=== PATIENT | male | born 1950 | race Two or more races ===

== ENCOUNTER 2017-11-01 08:28 | Outpatient (CLI) | payer OTHER ==
[~2017-11-01] VITALS: Ht 152.4 cm; Wt 88.5 kg
[~2017-11-01 08:28] MED LIST: ASA81 MG; ZANTAC 7575 MG; ZANTAC300 MG PO
== END 2017-11-01 08:45 | disposition home or self-care (01) ==
LOC: OFIC 805 08:28
DX: H90.3 Sensorineural hearing loss, bilateral (principal); R49.8 Other voice and resonance disorders; J37.0 Chronic laryngitis; J31.0 Chronic rhinitis; H61.21 Impacted cerumen, right ear

== ENCOUNTER 2017-11-13 10:12 | Outpatient (CLI) | payer OTHER | END 2017-11-13 10:13 | disposition home or self-care (01) | LOC: RAD 10:12 | DX: H25.012 Cortical age-related cataract, left eye (principal) ==

== ENCOUNTER 2018-04-26 17:27 | Emergency (ER) | payer OTHER ==
[~2018-04-26] VITALS: Ht 175.3 cm; Wt 83.9 kg
[2018-04-26] MEDS ORDERED: OMEGA 3-6-9 CO400 MG (17:51)
[2018-04-26] MEDS ORDERED: [UNRECOGNIZED DRUG - OTHER] (17:54)
[2018-04-26] MEDS ORDERED: LISINOPRIL20 MG (17:54)
== END 2018-04-26 20:25 | disposition home or self-care (01) ==
LOC: ER 17:27
DX: G44.209 Tension-type headache, unspecified, not intractable (principal); F32.89 Other specified depressive episodes

== ENCOUNTER 2021-02-12 08:42 | Emergency (ER) | payer OTHER ==
[~2021-02-12] VITALS: Ht 172.7 cm; Wt 81.6 kg
[~2021-02-12 08:42] MED LIST changes: +LISINOPRIL20 MG; +OMEGA 3-6-9 CO400 MG; +[UNRECOGNIZED DRUG - OTHER]
[2021-02-12] MEDS ORDERED: MUPIROCIN22 GM TOP (10:28)
== END 2021-02-12 10:36 | disposition home or self-care (01) ==
LOC: ER 08:42
DX: L60.0 Ingrowing nail (principal)

== ENCOUNTER 2021-11-29 09:22 | Emergency (ER) | payer OTHER ==
[~2021-11-29] VITALS: Ht 172.7 cm; Wt 81.6 kg
[~2021-11-29 09:22] MED LIST changes: +MUPIROCIN22 GM TOP
[2021-11-29] MEDS ORDERED: TUSSI PRES-B L480 ML PO (12:40)
[2021-11-29] MEDS ORDERED: ZITHROMAX500 MG PO (12:40)
== END 2021-11-29 13:09 | disposition home or self-care (01) ==
LOC: ER 09:22
DX: B34.9 Viral infection, unspecified (principal); I10 Essential (primary) hypertension; Z20.822 Contact with and (suspected) exposure to COVID-19

== ENCOUNTER → 2022-04-15 | Emergency (ER) | payer OTHER ==
[~2022-04-15] VITALS: Ht 175.3 cm; Wt 81.6 kg
[~2022-04-15] MED LIST changes: +EZALLOR SPRINKLE5 MG PO; +OMEPRAZOLE20 MG PO; +TUSSI PRES-B L480 ML PO; +ZITHROMAX500 MG PO
== END | disposition home or self-care (01) ==
LOC: ER 08:01
DX: M54.50 Low back pain, unspecified (principal); I10 Essential (primary) hypertension; M51.36 Other intervertebral disc degeneration, lumbar region

== ENCOUNTER 2022-06-09 07:45 | Emergency (ER) | payer OTHER ==
[~2022-06-09] VITALS: Ht 152.4 cm; Wt 81.6 kg
== END 2022-06-09 10:06 | disposition home or self-care (01) ==
LOC: ER 07:45
DX: J02.8 Acute pharyngitis due to other specified organisms (principal)

== ENCOUNTER 2023-01-31 11:15 | Emergency (ER) | payer OTHER ==
[~2023-01-31] VITALS: Ht 170.2 cm; Wt 86.2 kg
== END 2023-01-31 15:05 | disposition home or self-care (01) ==
LOC: ER 11:15
DX: U07.1 COVID-19 (principal)

== ENCOUNTER 2023-08-08 08:00 | Emergency (ER) | payer OTHER ==
[~2023-08-08] VITALS: Ht 175.3 cm; Wt 83.9 kg
[2023-08-08] MEDS ORDERED: GABAPENTIN800 M1 PO (08:25)
[2023-08-08] MEDS ORDERED: ZESTRIL10 M1 PO (08:26)
[2023-08-08] MEDS ORDERED: RESTORIL30 MG PO (08:27)
== END 2023-08-08 09:07 | disposition home or self-care (01) ==
LOC: ER 08:00
DX: M94.0 Chondrocostal junction syndrome [Tietze] (principal); R07.89 Other chest pain
CPT/HCPCS: 93005; 96372; 99283; J1885

== ENCOUNTER 2023-09-29 08:08 | Emergency (ER) | payer OTHER ==
[~2023-09-29] VITALS: Ht 175.3 cm; Wt 81.6 kg
[~2023-09-29 08:08] MED LIST changes: +GABAPENTIN800 M1 PO; +RESTORIL30 MG PO; +ZESTRIL10 M1 PO
[2023-09-29 09:13] LABS: HEMATOCRIT 42.1 % (39.0-48.0); HEMOGLOBIN 14.5 g/dL (13-16.00); MEAN CELL VOLUME 88.4 fL (80.0-100.00); MEAN CORPUSCULAR HEMOGLOBIN 30.5 pg (27.00-32.0); MEAN CORPUSCULAR HGB CONC 34.5 g/dl (32.0-36.0); PLATELET COUNT 211 K/uL (150-450); RED BLOOD COUNT 4.76 M/uL (4.00-6.00); RED CELL DISTRIBUTION WIDTH 14.3 % (11.5-14.5)
[2023-09-29 09:40] LABS: CALCIUM 9.6 mg/dL (8.5-10.1); CREATININE SERUM 1.63 mg/dL (0.70-1.30); GFR 41.56; POTASSIUM 4.17 mEq/L (3.5-5.1)
[2023-09-29 09:41] LABS: PH,URINE 6.5 (5.0-8.0); URINE APPEARANCE Clear; URINE BILIRRUBIN Negative (NEGATIVE); URINE BLOOD Negative; URINE COLOR Dark Yellow; URINE GLUCOSE Negative (NEGATIVE); URINE LEUKOCYTE Negative; URINE NITRATE Negative; URINE PROTEIN 30 (NEGATIVE)
[2023-09-29 09:44] LABS: URINE BACTERIA 30.2 uL (0.0-1933); URINE EPITHELIAL CELLS 7.5 uL (0.0-38.8); URINE RBC 10.6 uL (0.0-20.8); URINE WBC 6.6 uL (0.0-23.2)
== END 2023-09-29 13:14 | disposition home or self-care (01) ==
LOC: ER 08:08
PROVIDERS: General Practice
DX: B34.9 Viral infection, unspecified (principal); R50.9 Fever, unspecified; R53.81 Other malaise; Z20.822 Contact with and (suspected) exposure to COVID-19; I10 Essential (primary) hypertension

== ENCOUNTER 2024-01-11 05:35 | Emergency (ER) | payer OTHER ==
[~2024-01-11] VITALS: Ht 175.3 cm; Wt 83.9 kg
[2024-01-11] MEDS ORDERED: ACETAMINOPHEN 500 MG GEL..CAP PO ONE ×2 (09:45→09:47)
[2024-01-11] MEDS ORDERED: BROMPHENIRAM/PHENYLEPHRINE/DM 5 ML BLIST.PACK PO ONE (09:45)
[2024-01-11] MEDS ORDERED: LORATADINE 10 MG TABLET PO ONE (09:45)
[2024-01-11] MEDS ORDERED: DEXAMETHASONE SODIUM PHOSPHATE 4 MG/ML VIAL IM ONE (09:45)
[2024-01-11] MEDS ORDERED: DEXAMETHASONE SODIUM PHOSPHATE 4 MG/ML VIAL ONE (09:48)
[2024-01-11 10:41] LABS: HEMATOCRIT 40.5 % (39.0-48.0); MEAN CELL VOLUME 90.2 fL (80.0-100.00); MEAN CORPUSCULAR HEMOGLOBIN 31.2 pg (27.00-32.0); MEAN CORPUSCULAR HGB CONC 34.6 g/dl (32.0-36.0); PLATELET COUNT 225 K/uL (150-450); RED CELL DISTRIBUTION WIDTH 14.4 % (11.5-14.5)
[2024-01-11] MEDS ORDERED: PAXLOVID 150-11 EAC1 PO (11:52)
[2024-01-11] MEDS ORDERED: ZYRTEC10 M3 PO ×2 (11:56→11:57)
[2024-01-11] MEDS ORDERED: FLONASE ALLERG9.9 ML NASAL ×2 (11:57)
== END 2024-01-11 13:07 | disposition home or self-care (01) ==
LOC: ER 05:37
PROVIDERS: General Practice
DX: U07.1 COVID-19 (principal); I10 Essential (primary) hypertension
CPT/HCPCS: 36415; 96372; 99282; J1100

== ENCOUNTER 2024-09-14 08:07 | Emergency (ER) | payer OTHER ==
[~2024-09-14] VITALS: Ht 175.3 cm; Wt 86.2 kg
[~2024-09-14 08:07] MED LIST changes: +FLONASE ALLERG9.9 ML NASAL; +PAXLOVID 150-11 EAC1 PO; +ZYRTEC10 M3 PO
[2024-09-14] MEDS ORDERED: CEFTRIAXONE SODIUM 1,000 MG VIAL IM ONE (10:15)
[2024-09-14] MEDS ORDERED: LIDOCAINE HCL 1% 10ML VIAL ONE (10:19)
[2024-09-14] MEDS ORDERED: CEFTRIAXONE SODIUM 1,000 MG VIAL ONE (10:20)
== END 2024-09-14 10:28 ==
LOC: ER 08:09
DX: J37.0 Chronic laryngitis (principal); I10 Essential (primary) hypertension; K21.9 Gastro-esophageal reflux disease without esophagitis; G47.09 Other insomnia; E78.49 Other hyperlipidemia
CPT/HCPCS: 96372; 99282; J0696

== ENCOUNTER 2024-10-29 09:10 | Outpatient (CLI) | payer OTHER | END 2024-10-29 09:16 | disposition home or self-care (01) | LOC: RAD 09:10 | PROVIDERS: ATTEND Internal Medicine | DX: R10.2 Pelvic and perineal pain (principal) ==

== ENCOUNTER 2025-01-13 07:59 | Emergency (ER) | payer OTHER ==
[~2025-01-13] VITALS: Ht 175.3 cm; Wt 90.3 kg
[2025-01-13] MEDS ORDERED: BENZONATATE 200 MG CAPSULE PO ONE (09:45)
[2025-01-13] MEDS ORDERED: LEVALBUTEROL HCL 1.25 MG/3 ML SOLUTION IH ONE (09:45)
[2025-01-13] MEDS ORDERED: METHYLPREDNISOLONE SOD SUCC 40 MG VIAL IM ONE (09:45)
[2025-01-13 10:25] LABS: BASO % 0.5 % (0.1-1.2); EOS # 0.02 (0.04-0.54); EOS % 0.2 % (0.7-7.0); HEMATOCRIT 36.3 % (40.1-51.0); LYMPH % 28.5 % (19.3-53.1); MEAN CORPUSCULAR HEMOGLOBIN 29.8 pg (25.6-32.2); MONO # 1.39 (0.24-0.82); NEUT # 4.79 (1.56-6.13); NEUT % 54.7 % (34.0-71.1); PLATELET COUNT 213 K/uL (163-369); RED BLOOD COUNT 4.03 M/uL (4.63-6.08); RED CELL DISTRIBUTION WIDTH 13.3 % (11.6-14.4)
[2025-01-13 10:27] LABS: MONO % 15.9 % (4.7-12.5)
[2025-01-13 10:43] LABS: ALBUMIN 4.1 gm/dL (3.4-5.0); BILIRUBIN TOTAL 0.73 mg/dL (0.3-1.2); CALCIUM 9.6 mg/dL (8.5-10.1); CREATININE SERUM 1.46 mg/dL (0.70-1.30); GFR 46.94; GLOBULINA 4.1 G/DL (2.4-3.5); POTASSIUM 4.53 mEq/L (3.5-5.1); TOTAL PROTEIN 8.2 gm/dL (6.4-8.2)
[2025-01-13 11:09] LABS: INFLUENZA A AG NEGATIVE (NEGATIVE); INFLUENZA B AG NEGATIVE (NEGATIVE)
[2025-01-13 11:17] LABS: PH,URINE 5.5 (5.0-8.0); URINE APPEARANCE Clear; URINE BILIRRUBIN Negative (NEGATIVE); URINE BLOOD Negative; URINE COLOR Yellow; URINE GLUCOSE Negative (NEGATIVE); URINE KETONE Negative (NEGATIVE); URINE LEUKOCYTE Negative; URINE NITRATE Negative; URINE PROTEIN Negative (NEGATIVE)
[2025-01-13 11:26] LABS: COVID-19 AG NEGATIVE (NEGATIVE)
[2025-01-13] MEDS ORDERED: LEVALBUTER0.63 MG/3 IH (11:36)
[2025-01-13] MEDS ORDERED: BENZONATATE200 M1 PO (11:36)
[2025-01-13] MEDS ORDERED: AZITHROMYCIN500 MG PO (11:36)
[2025-01-13] MEDS ORDERED: SINGULAIR10 MG PO (11:36)
[2025-01-13] MEDS ORDERED: PEPCID AC20 MG PO (11:36)
[2025-01-13] MEDS ORDERED: ZYRTEC10 MG PO (11:38)
[2025-01-13 11:41] LABS: URINE RBC 0-3 /HPF; URINE WBC 0-2 /hpf
[2025-01-13 11:42] LABS: URINE BACTERIA SOME; URINE EPITHELIAL CELLS 0-4 /HPF; URINE MUCUS MODERATE
== END 2025-01-13 11:53 | disposition home or self-care (01) ==
LOC: ER 08:34
PROVIDERS: General Practice
DX: R05.9 Cough, unspecified (principal); Z20.822 Contact with and (suspected) exposure to COVID-19
CPT/HCPCS: 36415; 71046; 94640; 96372; 99283; J3490

== ENCOUNTER 2025-05-28 17:04 | Emergency (ER) | payer OTHER ==
[~2025-05-28] VITALS: Ht 175.3 cm; Wt 88.5 kg
[~2025-05-28 17:04] MED LIST changes: +AZITHROMYCIN500 MG PO; +BENZONATATE200 M1 PO; +LEVALBUTER0.63 MG/3 IH; +PEPCID AC20 MG PO; +SINGULAIR10 MG PO; +ZYRTEC10 MG PO
[2025-05-28] MEDS ORDERED: ORPHENADRINE CITRATE 30 MG/ML AMPUL IM ONE (18:00)
[2025-05-28] MEDS ORDERED: DEXAMETHASONE SODIUM PHOSP/PF 10 MG/ML VIAL IV ONE (18:00)
[2025-05-28] MEDS ORDERED: KETOROLAC TROMETHAMINE 30 MG VIAL IM ONE (18:00)
[2025-05-28] MEDS ORDERED: KETOROLAC TROMETHAMINE 30 MG VIAL ONE (20:57)
[2025-05-28] MEDS ORDERED: DEXAMETHASONE SODIUM PHOSPHATE 4 MG/ML VIAL ONE (20:57)
[2025-05-28] MEDS ORDERED: ORPHENADRINE CITRATE 30 MG/ML AMPUL ONE (20:57)
[2025-05-28] MEDS ORDERED: TYLENOL ARTHRI650 MG PO (21:12)
[2025-05-28] MEDS ORDERED: KETO10TA2 PO (21:12)
[2025-05-28 21:45] VITALS: BP 132/70; O2SAT 98
== END 2025-05-28 21:46 | disposition home or self-care (01) ==
LOC: ER 17:04
DX: S42.392A Other fracture of shaft of left humerus, initial encounter for closed fracture (principal); I10 Essential (primary) hypertension; M25.512 Pain in left shoulder; W18.39XA Other fall on same level, initial encounter; Y93.89 Activity, other specified; Y92.89 Other specified places as the place of occurrence of the external cause
CPT/HCPCS: 73030; 73060; 73200; 96365; 96372; 99284; J1100; J1885; J2360

== ENCOUNTER 2025-07-01 08:12 | Emergency (ER) | payer OTHER ==
[~2025-07-01] VITALS: Ht 175.3 cm; Wt 89.8 kg
[~2025-07-01 08:12] MED LIST changes: +KETO10TA2 PO; +TYLENOL ARTHRI650 MG PO
[2025-07-01 08:33] VITALS: BP 116/76; O2SAT 98
[2025-07-01] MEDS ORDERED: DEXAMETHASONE SODIUM PHOSPHATE 4 MG/ML VIAL IM STA ×2 (08:36→08:47)
[2025-07-01] MEDS ORDERED: KETOROLAC TROMETHAMINE 30 MG VIAL IM STA (08:36)
[2025-07-01] MEDS ORDERED: DEXAMETHASONE SODIUM PHOSPHATE 4 MG/ML VIAL ONE (08:39)
[2025-07-01] MEDS ORDERED: KETOROLAC TROMETHAMINE 30 MG VIAL ONE (08:39)
[2025-07-01] MEDS ORDERED: DIPHENHYDRAMINE HCL 50 MG/ML VIAL 1ML IM ONE (09:00)
[2025-07-01] MEDS ORDERED: DOLOGESIC 500-1 EACH PO (13:30)
== END 2025-07-01 14:38 | disposition home or self-care (01) ==
LOC: ER 08:13
DX: M25.512 Pain in left shoulder (principal)
CPT/HCPCS: 73030; 73060; 96372; 99283; J1100; J1885